=== PATIENT | female | born 1960 | race Caucasian/White ===

== ENCOUNTER 2023-05-11 13:41 | Outpatient (AMB) | payer MEDICARE, MEDICAID, SELFPAY ==
--- NOTE | 2023-05-11 13:53 | A.SPINEOV_ITS ---
Intake Intake Visit Reasons: lower back pain Intake Note: Ms. Gifford is here today c/o low back pain. MRI done @ [facility]/brought disc. Asset Protection Associate Required: No Assessment & Plan Assessment & Plan (1) Lumbago: Code(s): M54.50 - Low back pain, unspecified Plan Rebekah is a 62-year-old female who comes in today as a self-referral with a chief complaint of low back pain with radiation into her bilateral lower extremities including her feet. She has a complicated spinal history which includes scoliosis, spinal abscess, tarlov cyst, and meningioma. She states that her left sided pain is worse than the right, and that she has severe numbness/tingling in her left thigh radiating into her left groin and down to the dorsal aspect of her left foot. She states that a little over 2 years ago she had a spinal meningioma removed at [facility], and has had severe low back/leg pain ever since her surgery. She reports that she was able to ambulate fine with very little pain prior to her surgery, but reports that after her surgery she was unable to walk due to pain / weakness and has had to use a walker to ambulate ever since. She reports her weakness / pain has increased steadily over the course of the last 2 years. She has been to physical therapy, attempted cortisone injections, and tried many [id number] remedies without alleviation of her symptoms. She now takes oxycodone, gabapentin, Tylenol and ibuprofen daily just to make her pain tolerable enough to get out of bed. PMH: High blood pressure. Social hx: Patient does not smoke, reports no substance use. Medications: Oxycodone, Tylenol, ibuprofen, gabapentin. Allergies: Sulfa. Physical exam: Inspection / palpation: The patients thoracic spine is notably kyphotic. She has a large midline thoraco-lumbar surgical scar that is estimated to be 7 inches in length. No spinous process can be felt on palpation of the surgical scar. His atrophy of her right thigh musculature, which is old according to the patient. Mobility / function: Patient ambulates well, can rise from a seated position without difficulty. Sensation: Diffuse numbness over the bilateral lower extremities. CN: II-XII grossly intact. Strength Testing Upper Extremities: - Deltoid 5/5 right 5/5 left - Biceps 5/5 right 5/5 left - Triceps 5/5 right 5/5 left - Wrist Ext 5/5 right 5/5 left - Wrist Flex 5/5 right 5/5 left - Hand cuffing machine operator 5/5 right 5/5 left - Interossei 5/5 right 5/5 left Strength Testing Lower Extremities: - Hip flexion 4/5 right 4/5 left - Knee extension 4/5 right 4/5 left - Dorsiflexion 4/5 right 4/5 left - Plantar flex 4/5 right 4/5 left - EHL 4/5 right 4/5 left Reflexes: - Biceps Right - 2+ Left - 2+ - Triceps Right - 2+ Left - 2+ - Patellar Right - 0 Left - 0 - Achilles Right - 1+ Left - 1+ - Plantar Right - 1+ Left - 1+ (-) Alaniz?s sign (-) Clonus Imaging review: MRI from 01/2022 shows multiple abnormalities difficult to discern with all the artifact on MRI post surgery. She does have some cord abnormalities noted at the level of the conus medullaris, which is notably superior to where normally sits. Other pathology is difficult to assess accurately. Impression: The patient is a 62-year-old female comes in as a self-referral for 2 years of low back pain and radiation into her bilateral legs, predominantly affecting her left side. After reviewing her imaging and history with Dr. Balbuena, there is no evident surgical option that we could offer the patient. We believe that based on her story and MRI results it is possible that she sustained some kind of neurological deficit from her surgery, as she states she went into her surgery able to ambulate well with very little pain but came out post surgery with significant pain/weakness and difficulty ambulating. She has continued to deteriorate over the course of the last 2 years, to the point where she is only able to ambulate with the assistance of a walker and needs to stop frequently after only a few steps. Unfortunately there is no neurosurgical intervention that we could offer the patient that would provide her with relief of symptoms. She was encouraged to attempt to follow-up with the surgeon who performed her surgery. She was also encouraged to continue with physical therapy and to follow up with her teaching assistant The total time spent with this visit with this patient was 60 minutes reviewing history, physical exam, MRI lumbar spine imaging review, and implementation of treatment plan or further diagnostic testing. Bryn Balbuena MD,PhD [facility] Coding Level of Care Code New Pt Level 5 (57541) Diagnoses Lumbago M54.50
== END 2023-05-11 14:55 | disposition home or self-care (01) ==
PROVIDERS: Visit Provider Neurological Surgery
DX: M54.50 Low back pain, unspecified (principal)
CPT/HCPCS: 99205

== ENCOUNTER → 2023-05-11 13:41 | Outpatient (BNVA) | payer MEDICARE, MEDICAID, SELFPAY | PROVIDERS: Visit Provider Neurological Surgery ==